=== PATIENT | female | born 1970 | race American Indian/Alaskan Native ===

== ENCOUNTER 2016-08-12 05:48 | Emergency (ER) | payer MEDICARE ==
[2016-08-12 06:30] LABS: Basophils % (Auto) 0.5 % (0.0-1.8); Eosinophils % (Auto) 1.3 % (0.0-4.3); Hematocrit 37.4 % (30.3-42.9); Hemoglobin 12.1 gm/dl (10.1-14.3); Mean Corpuscular HGB Conc 32 % (30-34); Mean Corpuscular Hemoglobin 30 pg (28-32); Mean Corpuscular Volume 92 fl (79-97); Platelet Count 130 K/mm3 (140-440); Red Blood Count 4.09 M/mm3 (3.65-5.03); Red Cell Distribution Width 13.4 % (13.2-15.2); White Blood Count 4.4 K/mm3 (4.5-11.0)
[2016-08-12 06:53] LABS: Anion Gap 20 mmol/L; BUN/Creatinine Ratio 17.14; Blood Urea Nitrogen 12 mg/dL (7-17); Calcium 8.6 mg/dL (8.4-10.2); Carbon Dioxide 21 mmol/L (22-30); Chloride 105.2 mmol/L (98-107); Glucose 89 mg/dL (65-100); Potassium 3.8 mmol/L (3.6-5.0); Sodium 142 mmol/L (137-145)
[2016-08-12 07:51] LABS: Bilirubin,Urine NEG (Negative); Blood,Urine NEG (Negative); Ketones,Urine NEG (Negative); Leukocyte Esterase,Urine NEG (Negative); Mucus,Urine FEW /HPF; Nitrite,Urine NEG (Negative); Protein,Urine <15 mg/dL mg/dL (Negative); Urobilinogen,Urine < 2.0 mg/dL (<2.0)
--- NOTE | 2016-08-12 11:04 | Emergency Department Report ---
ED Chest Pain HPI - General Chief Complaint: Chest Pain Stated Complaint: CP/L ARM PAIN Time Seen by Provider: 08/12/16 10:49 Source: patient, RN notes reviewed, old records reviewed Mode of arrival: Ambulatory Limitations: No Limitations - History of Present Illness Initial Comments: This is a 46-year-old female. She is previously unknown to me. Her primary care doctor is Dr. Kayla Eugene. Past medical history includes hypertension, hypothyroidism, anemia and bipolar disorder. Patient had a negative nuclear stress test at this hospital October 2014. Patient presents to the ED O essential chest pain for 3 weeks. The chest pain does not radiates to the back, arms or neck. She does note that she develops intermittent left arm tingling, but this is not a radiation sensation. There is no nausea or vomiting, there is no diaphoresis, there is no shortness of breath, there is no leg pain, there is no leg swelling, no recent trips greater than 4 hours. Patient also reports a negative nuclear stress test early ROM is here because of palpitations which have subsequently been attributed to her hypothyroidism. She has not taken aspirin in the past 7 days , there is no cocaine use. MD Complaint: chest pain -: Gradual, week(s) Pain Location: substernal, left chest Severity scale (0 -10): 0 Quality: aching Consistency: intermittent Improves With: nothing Worsens With: nothing Treatments Prior to Arrival: none Aspirin use within the Past 7 Days: (0) No - Related Data On Oral Contraceptives: No Home Medications Medication Instructions Recorded Confirmed Last Taken Atenolol [Tenormin] 50 mg PO DAILY 07/05/15 12/09/15 12/09/15 Ferrous Sulfate [Feosol] 325 mg PO QDAY 07/05/15 12/09/15 12/09/15 Potassium Gluconate 595 mg PO QDAY 07/05/15 12/09/15 12/09/15 Topiramate [Topamax] 100 mg PO QDAY 07/05/15 12/09/15 12/09/15 busPIRone [Buspar] 10 mg PO BID 07/05/15 12/09/15 12/09/15 cycloSPORINE [Restasis 0.05%] 1 drops OU BID 12/09/15 12/09/15 12/09/15 valACYclovir [Valtrex] 500 mg PO DAILY 0912/09/15 12/09/15 Previous Rx's Medication Instructions Recorded Last Taken Type Ibuprofen [Motrin] 800 mg PO Q8HR PRN #14 tablet 12/09/15 Unknown Rx ALBUTEROL Inhaler [ProAir HFA 2 puff IH QID PRN #1 inhalation 02/19/16 Unknown Rx Inhaler] Azithromycin [Zithromax Z-CHA] 250 mg PO DAILY #6 tab 02/19/16 Unknown Rx Fluticasone [Flonase] 1 spray NS QDAY #1 bottle 02/19/16 Unknown Rx Allergies Allergy/AdvReac Type Severity Reaction Status Date / Time oxycodone AdvReac Rash Verified 12/09/15 15:38 sulfamethoxazole AdvReac Rash Verified 12/09/15 15:38 [From Bactrim] trimethoprim [From Bactrim] AdvReac Rash Verified 12/09/15 15:38 ASHUTOSH score - Ashutosh Score Age > 65: (0) No Aspirin use within the Past 7 Days: (0) No 3 or more CAD Risk Factors: (0) No 2 or more Angina events in past 24 hrs: (0) No Known CAD with more than 50% Stenosis: (0) No Elevated Cardiac Markers: (0) No ST Deviation Greater than 0.5mm: (0) No ASHUTOSH Score: 0 ED Review of Systems ROS: Stated complaint: CP/L ARM PAIN Other details as noted in HPI ED Past Medical Hx - Past Medical History Previous Medical History?: Yes Hx Hypertension: Yes (Atenolol taken ) Hx GERD: Yes Hx Psychiatric Treatment: Yes (bipolar) Additional medical history: Mitral Valve Prolapse - Surgical History Past Surgical History?: Yes Hx Breast Surgery: Yes (REDUCTION) - Social History Smoking Status: Never Smoker Substance Use Type: Alcohol - Medications Home Medications: Home Medications Medication Instructions Recorded Confirmed Last Taken Type Atenolol [Tenormin] 50 mg PO DAILY 07/05/15 12/09/15 12/09/15 History Ferrous Sulfate [Feosol] 325 mg PO QDAY 07/05/15 12/09/15 12/09/15 History Potassium Gluconate 595 mg PO QDAY 07/05/15 12/09/15 12/09/15 History Topiramate [Topamax] 100 mg PO QDAY 07/05/15 12/09/15 12/09/15 History busPIRone [Buspar] 10 mg PO BID 07/05/15 12/09/15 12/09/15 History Ibuprofen [Motrin] 800 mg PO Q8HR PRN #14 tablet 12/09/15 Unknown Rx cycloSPORINE [Restasis 0.05%] 1 drops OU BID 12/09/15 12/09/15 12/09/15 History valACYclovir [Valtrex] 500 mg PO DAILY 12/09/15 12/09/15 12/09/15 History ALBUTEROL Inhaler [ProAir HFA 2 puff IH QID PRN #1 inhalation 02/19/16 Unknown Rx Inhaler] Azithromycin [Zithromax Z-CHA] 250 mg PO DAILY #6 tab 02/19/16 Unknown Rx Fluticasone [Flonase] 1 spray NS QDAY #1 bottle 02/19/16 Unknown Rx ED Physical Exam - General Limitations: No Limitations General appearance: alert, in no apparent distress - Head Head exam: Present: atraumatic, normocephalic - Eye Eye exam: Present: normal appearance - ENT ENT exam: Present: normal exam, normal orophraynx, mucous membranes moist, normal external ear exam - Neck Neck exam: Present: normal inspection, full ROM. Absent: tenderness, meningismus - Respiratory Respiratory exam: Present: normal lung sounds bilaterally. Absent: respiratory distress, wheezes, rales, rhonchi, stridor, chest wall tenderness, accessory muscle use, decreased breath sounds - Cardiovascular Cardiovascular Exam: Present: regular rate, normal rhythm, normal heart sounds. Absent: bradycardia, tachycardia, irregular rhythm, systolic murmur, diastolic murmur, rubs, gallop - GI/Abdominal GI/Abdominal exam: Present: soft, normal bowel sounds. Absent: distended, tenderness, guarding, rebound, rigid, pulsatile mass, hernia - Extremities Exam Extremities exam: Present: normal inspection, full ROM, normal capillary refill. Absent: tenderness, pedal edema, joint swelling, calf tenderness - Back Exam Back exam: Present: normal inspection, full ROM. Absent: tenderness, CVA tenderness (R), CVA tenderness (L), muscle spasm, paraspinal tenderness, vertebral tenderness - Neurological Exam Neurological exam: Present: alert, oriented X3, normal gait, other (Extraocular movements intact. Tongue midline. No facial droop. Facial sensation intact to light touch in the V1, V2, V3 distribution bilaterally. 5 and 5 strength in 4 extremities.. Sensation is intact to light touch in 4 extremities.). Absent : motor sensory deficit - Psychiatric Psychiatric exam: Present: normal affect, normal mood - Skin Skin exam: Present: warm, dry, intact, normal color. Absent: rash ED Course Vital Signs 08/12/16 08/12/16 08/12/16 05:58 09:34 09:35 Temperature 98.3 F Pulse Rate 75 Respiratory 18 Rate Blood Pressure 162/9 150/93 150/93 O2 Sat by Pulse 100 100 Oximetry 08/12/16 08/12/16 08/12/16 09:36 10:00 10:30 Temperature Pulse Rate Respiratory 18 Rate Blood Pressure 144/87 138/81 O2 Sat by Pulse 100 100 100 Oximetry 08/12/16 08/12/16 08/12/16 11:23 11:30 11:51 Temperature Pulse Rate 68 Respiratory Rate Blood Pressure 135/83 125/75 O2 Sat by Pulse 100 100 Oximetry - Reevaluation(s) Reevaluation #1: 08/12/16 11:54 Differential diagnosis: GERD, gastritis, reflux, pneumonia, acute coronary syndrome, pericarditis, myocarditis Assessment and plan: 46-year-old female who is low risk by ASHUTOSH score, low risk by heart score, atypical chest pain, has a negative nuclear stress test April of this year (this is confirmed by cardiology on-call, Dru Lucas.) The patient has a pulmonary embolus or DVT risk factors, she is low risk by well 's criteria, and she is perc negative. EKG is essentially morphologically unchanged 2, troponins negative 2, x-ray of the chest negative for acute disease. Chloride is 105.2. I have discussed her case with cardiology on-call, Dru Crain. Patient is given follow-up appointment with cardiology August 16 at 2:40 PM. The patient is at low risk for major adverse cardiac event at this time. Reevaluation #2: 08/12/16 12:02 Patient indicates that she is not . X-ray of the chest is negative ED Medical Decision Making - Lab Data Result diagrams: 08/12/16 06:07 08/12/16 06:07 Vital Signs 08/12/16 08/12/16 08/12/16 05:58 09:34 09:35 Temperature 98.3 F Pulse Rate 75 Respiratory 18 Rate Blood Pressure 162/9 150/93 150/93 O2 Sat by Pulse 100 100 Oximetry 08/12/16 08/12/16 08/12/16 09:36 10:00 10:30 Temperature Pulse Rate Respiratory 18 Rate Blood Pressure 144/87 138/81 O2 Sat by Pulse 100 100 100 Oximetry 08/12/16 08/12/16 08/12/16 11:23 11:30 11:51 Temperature Pulse Rate 68 Respiratory Rate Blood Pressure 135/83 125/75 O2 Sat by Pulse 100 100 Oximetry Lab Results 08/12/16 08/12/16 08/12/16 Range/Units 06:07 06:07 08:57 WBC 4.4 L (4.5-11.0) K/mm3 RBC 4.09 (3.65-5.03) M/mm3 Hgb 12.1 (10.1-14.3) gm/dl Hct 37.4 (30.3-42.9) % MCV 92 (79-97) fl MCH 30 (28-32) pg MCHC 32 (30-34) % RDW 13.4 (13.2-15.2) % Plt Count 130 L (140-440) K/mm3 Lymph % (Auto) 48.9 H (13.4-35.0) % Caroline % (Auto) 10.0 H (0.0-7.3) % Eos % (Auto) 1.3 (0.0-4.3) % Baso % (Auto) 0.5 (0.0-1.8) % Lymph # 2.1 (1.2-5.4) K/mm3 Caroline # 0.4 (0.0-0.8) K/mm3 Eos # 0.1 (0.0-0.4) K/mm3 Baso # 0.0 (0.0-0.1) K/mm3 Seg Neutrophils % 39.3 L (40.0-70.0) % Seg Neutrophils # 1.7 L (1.8-7.7) K/mm3 Sodium 142 (137-145) mmol/L Potassium 3.8 (3.6-5.0) mmol/L Carbon Dioxide 21 L (22-30) mmol/L BUN 12 (7-17) mg/dL Creatinine 0.7 (0.7-1.2) mg/dL Estimated GFR > 60 ml/min BUN/Creatinine Ratio 17.14 % Glucose 89 (65-100) mg/dL Calcium 8.6 (8.4-10.2) mg/dL Troponin T < 0.010 < 0.010 (0.00-0.029) ng/mL Urine Color (Yellow) Urine Turbidity (Clear) Urine pH (5.0-7.0) Ur Specific [place] (1.003-1.030) Urine Protein (Negative) mg/dL Urine Glucose (UA) (Negative) mg/dL Urine Ketones (Negative) mg/dL Urine Blood (Negative) Urine Nitrite (Negative) Urine Bilirubin (Negative) Urine Urobilinogen (<2.0) mg/dL Ur Leukocyte Esterase (Negative) Urine WBC (Auto) (0.0-6.0) /HPF Urine RBC (Auto) (0.0-6.0) /HPF U Epithel Cells (Auto) (0-13.0) /HPF Urine Mucus /HPF Urine HCG, Qual (Negative) 08/12/16 Range/Units Unknown WBC (4.5-11.0) K/mm3 RBC (3.65-5.03) M/mm3 Hgb (10.1-14.3) gm/dl Hct (30.3-42.9) % MCV (79-97) fl MCH (28-32) pg MCHC (30-34) % RDW (13.2-15.2) % Plt Count (140-440) K/mm3 Lymph % (Auto) (13.4-35.0) % Caroline % (Auto) (0.0-7.3) % Eos % (Auto) (0.0-4.3) % Baso % (Auto) (0.0-1.8) % Lymph # (1.2-5.4) K/mm3 Caroline # (0.0-0.8) K/mm3 Eos # (0.0-0.4) K/mm3 Baso # (0.0-0.1) K/mm3 Seg Neutrophils % (40.0-70.0) % Seg Neutrophils # (1.8-7.7) K/mm3 Sodium (137-145) mmol/L Potassium (3.6-5.0) mmol/L Carbon Dioxide (22-30) mmol/L BUN (7-17) mg/dL Creatinine (0.7-1.2) mg/dL Estimated GFR ml/min BUN/Creatinine Ratio % Glucose (65-100) mg/dL Calcium (8.4-10.2) mg/dL Troponin T (0.00-0.029) ng/mL Urine Color Yellow (Yellow) Urine Turbidity Clear (Clear) Urine pH 5.0 (5.0-7.0) Ur Specific [place] 1.025 (1.003-1.030) Urine Protein <15 mg/dl (Negative) mg/dL Urine Glucose (UA) Neg (Negative) mg/dL Urine Ketones Neg (Negative) mg/dL Urine Blood Neg (Negative) Urine Nitrite Neg (Negative) Urine Bilirubin Neg (Negative) Urine Urobilinogen < 2.0 (<2.0) mg/dL Ur Leukocyte Esterase Neg (Negative) Urine WBC (Auto) 2.0 (0.0-6.0) /HPF Urine RBC (Auto) 1.0 (0.0-6.0) /HPF U Epithel Cells (Auto) 4.0 (0-13.0) /HPF Urine Mucus Few /HPF Urine HCG, Qual Negative (Negative) - EKG Data -: EKG Interpreted by Co EKG shows normal: sinus rhythm Rate: normal - EKG Data 08/12/16 11:56 EKG #1 demonstrates normal sinus, 70 bpm, normal axis, normal intervals, not morphologically consistent with STEMI, appears unchanged when compared to prior EKG from 02/18/2016. EKG #2 demonstrates normal sinus, 63 bpm, normal intervals, normal axis, not morphologically consistent with STEMI. Appears unchanged when compared to prior. - Radiology Data Radiology results: report reviewed, image reviewed X-ray of the chest is negative for acute disease Critical care attestation.: If time is entered above; I have spent that time in minutes in the direct care of this critically ill patient, excluding procedure time. ED Disposition Clinical Impression: Chest pain Disposition: DISCHARGED TO HOME OR SELFCARE Is pt being admited?: No Does the pt Need Aspirin: No Condition: Stable Instructions: Chest Pain (ED) Additional Instructions: Continue current outpatient medications. Follow up with your analytics developer, August 16, at 240 in the afternoon. Return to the ER right away with new pain, worsened pain, migration of pain, fevers or chills, intractable nausea or vomiting, inability to tolerate liquid feeds. Referrals: KAYLA CAGLE MD [Primary Care Provider] - 3-5 Days HARRIS SANTILLAN MD [Staff Physician] - 3-5 Days
--- NOTE | 2016-08-12 11:31 | XRay Report ---
CHEST 2 VIEWS INDICATION: Chest pain. COMPARISON: 07/05/2015. FINDINGS: PA and lateral chest radiographs demonstrate normal cardiomediastinal silhouette. Lungs now clear. Slight thoracic dextrocurvature. CONCLUSION: No acute disease in the chest. Thank you for the opportunity to participate in this patient's care.
[2016-08-12 12:14] VITALS: BP 129/79
== END 2016-08-12 12:14 | disposition home or self-care (01) ==
LOC: ED 05:48
DX: R07.9 Chest pain, unspecified (principal); I10 Essential (primary) hypertension; K21.9 Gastro-esophageal reflux disease without esophagitis; F31.9 Bipolar disorder, unspecified; Z88.2 Allergy status to sulfonamides; Z88.8 Allergy status to other drugs, medicaments and biological substances
CPT/HCPCS: 36415; 71020; 80048; 81001; 81025; 84484; 85025; 93005; 93010

== ENCOUNTER 2017-07-04 18:12 | Emergency (ER) | payer MEDICARE ==
--- NOTE | 2017-07-04 19:40 | XRay Report ---
FINAL REPORT PROCEDURE: XR CHEST ROUTINE 2V TECHNIQUE: PA and lateral chest radiographs were obtained. CPT 75735 HISTORY: Cough, congestion. COMPARISON: No prior studies are available for comparison. FINDINGS: Heart: Normal. Mediastinum/Vessels: Normal. Lungs/Pleural space: Normal. Bony thorax: No acute osseous abnormality. Other: Cholecystectomy clips. IMPRESSION: No radiographic evidence of acute abnormality.
[2017-07-05 00:39] VITALS: BP 146/86
[2017-07-05] MEDS ORDERED: AUGMENTIN 875 MG PO ONE (01:21)
[2017-07-05] MEDS ORDERED: DECADRON IM ONE (01:21)
[2017-07-05] MEDS ORDERED: TORADOL IM ONE (01:21)
--- NOTE | 2017-07-05 01:21 | Emergency Department Report ---
Minor Respiratory - HPI Chief Complaint: Upper Respiratory Infection Stated Complaint: upper respiratory congestion and cough Time Seen by Provider: 07/05/17 01:20 Duration: 3 weeks Pain Location: Other (headache 2/10 located to the front on both sides) Severity: mild (2/10) Minor Respiratory: Yes Rhinorrhea (congestion, drainage to the back of her throat worst at night), Yes Able to Tolerate Fluids, Yes Cough (worse that night ), No Sore Throat, No Ear Pain (ears feel clogged), No Sick Contacts, No Hemoptysis, No Chest Pain, No Shortness of Breath, No Fever Other History: Patient here reports th she has cough, nasal congestion and drainage with drainage of the back of her throat, slight headache to the front of her head. Denies any chest pain or shortness of breath. She says she was seen by her primary care physician on 07/01/2017 and was given multiple prescription to include Tessalon Perle, Medrol Dosepak, Mucinex which she said she is taking Zyrtec. She said this started 3 weeks ago and symptoms has not gotten better with medication that was given by primary care physician. Patient denies any wheezing or difficulty swallowing. She said she follows ear nose and throat doctor and he had given her Flonase previously which worked for her but she did not get any from her primary care physician. She says she takes Tylenol [id number] for her headache and it helped but she still feeling clogged and pressure at the front of her head with pain being 2 out of 10. Pain comes and goes. Better with Tylenol. Pain is worse with coughing. Patient denies any fever or chills. Denies any nausea or vomiting. ED Review of Systems ROS: Stated complaint: LYNN Other details as noted in HPI Comment: All other systems reviewed and negative Constitutional: no symptoms reported Eyes: denies: eye pain, eye discharge ENT: congestion, other (ear sensation). denies: ear pain, throat pain, dental pain, epistaxis Respiratory: cough. denies: orthopnea, shortness of breath, SOB with exertion, SOB at rest, stridor, wheezing Cardiovascular: denies: chest pain, palpitations, dyspnea on exertion, orthopnea , edema, paroxysmal nocturnal dyspnea Gastrointestinal: denies: abdominal pain, nausea, vomiting, diarrhea Genitourinary: denies: dysuria, hematuria Musculoskeletal: denies: back pain, joint swelling, arthralgia, myalgia Skin: denies: rash Neurological: headache. denies: weakness, numbness, paresthesias, confusion, abnormal gait, vertigo ED Past Medical Hx - Past Medical History Previous Medical History?: Yes Hx Hypertension: Yes (Atenolol taken ) Hx GERD: Yes Hx Psychiatric Treatment: Yes (bipolar) Additional medical history: Mitral Valve Prolapse - Surgical History Past Surgical History?: Yes Hx Breast Surgery: Yes (REDUCTION) - Family History Family history: hypertension - Social History Smoking Status: Never Smoker Substance Use Type: None - Medications Home Medications: Home Medications Medication Instructions Recorded Confirmed Last Taken Type Atenolol [Tenormin] 50 mg PO DAILY 07/05/15 12/09/15 12/09/15 History Ferrous Sulfate [Feosol] 325 mg PO QDAY 07/05/15 12/09/15 12/09/15 History Potassium Gluconate 595 mg PO QDAY 07/05/15 12/09/15 12/09/15 History Topiramate [Topamax] 100 mg PO QDAY 07/05/15 12/09/15 12/09/15 History busPIRone [Buspar] 10 mg PO BID 07/05/15 12/09/15 12/09/15 History Ibuprofen [Motrin] 800 mg PO Q8HR PRN #14 tablet 12/09/15 Unknown Rx cycloSPORINE [Restasis 0.05%] 1 drops OU BID 12/09/15 12/09/15 12/09/15 History valACYclovir [Valtrex] 500 mg PO DAILY 12/09/15 12/09/15 12/09/15 History ALBUTEROL Inhaler [ProAir HFA 2 puff IH QID PRN #1 inhalation 02/19/16 Unknown Rx Inhaler] Azithromycin [Zithromax Z-CHA] 250 mg PO DAILY #6 tab 02/19/16 Unknown Rx Amoxicillin/K Clav Tab [Augmentin 1 tab PO Q12HR 10 Days #20 tab 07/05/17 Unknown Rx 875 mg] Fluticasone [Flonase] 1 spray NS QDAY 14 Days #1 bottle 07/05/17 Unknown Rx guaiFENesin/CODEINE [Robitussin AC] 5 ml PO Q8H PRN #100 ml 07/05/17 Unknown Rx Minor Respiratory Exam - Exam General: Vital signs noted. No distress. Alert and acting appropriately. This is a 46-year-old female well-nourished well-developed in no acute distress. HEENT: Yes Moist Mucous Membranes, Yes Rhinorrhea (nasal congestion with erythema), No Pharyngeal Erythema (no drooling. Uvula is midline and oral airways patent), No Pharyngeal Exudates, No Conjuctival Injection, No Frontal Tenderness ( Bilateral frontal sinus tenderness), No Maxillary Tenderness Ear: Neither TM Bulge (Bilateral TM congested), Neither TM Erythema, Neither EAC Pain, Neither EAC Discharge Neck: Yes Supple (full range of motion and no C-spine tenderness), No Adenopathy Lungs: Yes Good Air Exchange (CTAB. Normal work of breathing and), Yes Cough ( dry cough), No Wheezes, No Ronchi, No Stridor, No Labored Respirations, No Retractions, No Use of Accessory Muscles, No Other Abnormal Lung Sounds Heart: Yes Regular (S1 and S2. Regular rate and rhythm), No Murmur Abdomen: Yes Normal Bowel Sounds (in all quadrants), No Tenderness (nontender the palpation in all quadrants.), No Peritoneal Signs Skin: No Rash, No Edema Neurologic: Alert and oriented, no deficits. Neurological: GCS at 15, Pt is alert and oriented 3 speech is clear . Bilateral hand sales and service representative strong and equal. Normal gait. Negative Romberg and no pronator drift. Normal Reflexes. No motor or sensory deficit Musculoskeletal: Unremarkable. MSK/extremity: No clubbing, cyanosis or edema. Positive pulses all extremities and no neurovascular compromise. ED Course Vital Signs 07/04/17 07/05/17 18:18 00:38 Temperature 98.7 F Pulse Rate 79 58 L Respiratory 16 18 Rate Blood Pressure 167/96 Blood Pressure 146/86 [Left] O2 Sat by Pulse 100 100 Oximetry - Reevaluation(s) Reevaluation #1: 07/05/17 02:24 Patient given Decadron 10 mg IM and Toradol 60 mg IM for headache and sinus infection. She was also given Augmentin 875 mg by mouth ED Medical Decision Making - Radiology Data Chest x-ray reveals no acute cardiopulmonary findings. - Medical Decision Making ED course: Patient here complaining of upper respiratory symptoms of cough and congestion and headache. She was recently seen by her moderate needs teacher 3 days ago who prescribed her Tessalon Perle for cough, Medrol Dosepak and she is taking Zyrtec. Patient was given Toradol 60 mg IM and Decadron 10 mg IM in the emergency room which helped her symptoms. Patient says she does not feel any better. She says she took Tylenol [id number] for headache which helped. Patient says she has sinus infection which is chronic and she sees the ENT and when she sees ENT he gives her Flonase with her doctor did not give her Flonase or antibiotic. Patient with acute bacterial rhinosinusitis, headache more than likely from sinus infection. Patient does have bilateral frontal sinus tenderness and her neurological exam is intact. I discussed diagnosis and treatment plan the patient and I discussed with her that she should stop Tessalon Perle and I will put her on guaifenesin with codeine for cough because she said her cough is constant and it's worse at night. I told her to continue taking Zyrtec and Medrol Dosepak and I'll add antibiotic and Flonase. I discussed the patient that she needs to follow-up with her in nose and throat and her primary care physician in 3-5 days. She voices understanding discharge diagnosis and treatment plan and discharged home in stable condition. Critical care attestation.: If time is entered above; I have spent that time in minutes in the direct care of this critically ill patient, excluding procedure time. ED Disposition Clinical Impression: Acute bacterial rhinosinusitis, Cough in adult Headache, acute Qualifiers: Headache type: unspecified Intractability: not intractable Qualified Code(s): R51 - Headache Disposition: DC-01 TO HOME OR SELFCARE Is pt being admited?: No Does the pt Need Aspirin: No Condition: Stable Instructions: Acute Cough (ED), Acute Headache (ED), Acute Bacterial Rhinosinusitis (ED) Additional Instructions: Please increase her fluid intake Flush nostrils with saline nasal spray take antibiotic as prescribed F/U with primary care physician and ear nose and throat doctor as instructed Stop taking Tessalon Perle and start taking guaifenesin with codeine cough syrup. Please do not drive or operate heavy machinery while taking this medication. Continue Zyrtec and Medrol Dosepak Prescriptions: Amoxicillin/K Clav Tab [Augmentin 875 mg] 1 tab PO Q12HR 10 Days #20 tab Fluticasone [Flonase] 1 spray NS QDAY 14 Days #1 bottle guaiFENesin/CODEINE [Robitussin AC] 5 ml PO Q8H PRN #100 ml PRN Reason: Cough Referrals: your ,primary care physician [Other] - 3-5 Days your, ear nose and throat doctor [Other] - 3-5 Days Forms: Work/School Release Form(ED)
== END 2017-07-05 02:52 | disposition home or self-care (01) ==
LOC: ED 18:12
DX: R51 Headache (principal); J01.90 Acute sinusitis, unspecified; B96.89 Other specified bacterial agents as the cause of diseases classified elsewhere; I10 Essential (primary) hypertension; K21.9 Gastro-esophageal reflux disease without esophagitis; F31.9 Bipolar disorder, unspecified; Z88.5 Allergy status to narcotic agent; Z88.2 Allergy status to sulfonamides
CPT/HCPCS: 71046; 96372; 99283; J1100; J1885

== ENCOUNTER 2017-07-11 20:05 | Emergency (ER) | payer MEDICARE ==
[2017-07-11 20:29] LABS: Basophils # (Auto) 0.1 K/mm3 (0.0-0.1); Basophils % (Auto) 0.8 % (0.0-1.8); Eosinophils # (Auto) 0.1 K/mm3 (0.0-0.4); Eosinophils % (Auto) 1.5 % (0.0-4.3); Hematocrit 41.3 % (30.3-42.9); Hemoglobin 13.3 gm/dl (10.1-14.3); Lymphocytes % (Auto) 24.7 % (13.4-35.0); Mean Corpuscular HGB Conc 32 % (30-34); Mean Corpuscular Hemoglobin 30 pg (28-32); Mean Corpuscular Volume 93 fl (79-97); Monocytes # (Auto) 0.7 K/mm3 (0.0-0.8); Platelet Count 290 K/mm3 (140-440); Red Blood Count 4.46 M/mm3 (3.65-5.03); Red Cell Distribution Width 13.7 % (13.2-15.2)
[2017-07-11 20:42] LABS: Alanine Aminotransferase 11 units/L (7-56); BUN/Creatinine Ratio 13; Blood Urea Nitrogen 10 mg/dL (7-17); Calcium 9.1 mg/dL (8.4-10.2); Hemolysis Index 2
[2017-07-11 22:22] LABS: Bilirubin,Urine NEG (Negative); Blood,Urine NEG (Negative); Color,Urine Yellow (Yellow); Mucus,Urine FEW /HPF; Protein,Urine <15 mg/dL mg/dL (Negative); Urobilinogen,Urine < 2.0 mg/dL (<2.0)
[2017-07-12] MEDS ORDERED: NACL 0.9% 1000 ML 1,000 ML IV ONE (02:39)
[2017-07-12] MEDS ORDERED: TORADOL IV ONE (02:39)
[2017-07-12 03:49] VITALS: BP 120/73
--- NOTE | 2017-07-12 04:53 | Cat Scan Report ---
FINAL REPORT PROCEDURE: CT ABDOMEN PELVIS W CON TECHNIQUE: Computerized axial tomography of the abdomen and pelvis was performed after the IV injection of iodinated nonionic contrast. HISTORY: ABD PAIN, RIGHT LOWER QUADRANT COMPARISON: No prior studies are available for comparison. FINDINGS: Visualized lower thorax: There are infiltrates at the right lung base.. Liver: Normal size and attenuation. Spleen: Normal size and attenuation. Gallbladder and biliary system: There has been a cholecystectomy. The bile ducts are normal in caliber.. Pancreas: Normal. Adrenals: Normal. Kidneys: Normal. GI tract: There is no bowel obstruction, colitis or enteritis. The appendix is normal.. Lymph nodes and mesentery: There are enlarged lymph nodes in the right lower quadrant mesentery and small bowel mesentery. Adenitis not excluded.. Vasculature: Normal. Bladder: Normal. Reproductive organs: Uterus and ovaries are unremarkable.. There is a 13 millimeter cyst in the left ovary. Peritoneum: There is no ascites or free air, abscess or mass.. Musculoskeletal structures: No significant abnormality. Other: There is a small umbilical hernia containing fat only.. IMPRESSION: There has been a cholecystectomy. The bile ducts are normal in caliber.. There is no bowel obstruction, colitis or enteritis. The appendix is normal.. There are enlarged lymph nodes in the right lower quadrant mesentery and small bowel mesentery. Adenitis not excluded.. Uterus and ovaries are unremarkable.. There is a 13 millimeter cyst in the left ovary. There is no ascites or free air, abscess or mass.. There is a small umbilical hernia containing fat only..
--- NOTE | 2017-07-12 05:05 | Emergency Department Report ---
HPI - General Chief Complaint: Abdominal Pain Time Seen by Provider: 07/12/17 02:26 - HPI HPI: Nausea vomiting diarrhea for 4 days. Patient states symptoms started after eating some taco [employer]. Patient denies any fever or chills night sweat. Patient denies any flank pain. She has not tried any medications for her symptoms. Patient denies any exacerbating factors, any alleviating factors. ED Past Medical Hx - Past Medical History Previous Medical History?: Yes Hx Hypertension: Yes (Atenolol taken ) Hx GERD: Yes Hx Psychiatric Treatment: Yes (bipolar) Additional medical history: Mitral Valve Prolapse - Surgical History Past Surgical History?: Yes Hx Breast Surgery: Yes (REDUCTION) - Social History Smoking Status: Never Smoker Substance Use Type: None - Medications Home Medications: Home Medications Medication Instructions Recorded Confirmed Last Taken Type Atenolol [Tenormin] 50 mg PO DAILY 07/05/15 12/09/15 12/09/15 History Ferrous Sulfate [Feosol] 325 mg PO QDAY 07/05/15 12/09/15 12/09/15 History Potassium Gluconate 595 mg PO QDAY 07/05/15 12/09/15 12/09/15 History Topiramate [Topamax] 100 mg PO QDAY 07/05/15 12/09/15 12/09/15 History busPIRone [Buspar] 10 mg PO BID 07/05/15 12/09/15 12/09/15 History Ibuprofen [Motrin] 800 mg PO Q8HR PRN #14 tablet 12/09/15 Unknown Rx cycloSPORINE [Restasis 0.05%] 1 drops OU BID 12/09/15 12/09/15 12/09/15 History valACYclovir [Valtrex] 500 mg PO DAILY 12/09/15 12/09/15 12/09/15 History ALBUTEROL Inhaler [ProAir HFA 2 puff IH QID PRN #1 inhalation 02/19/16 Unknown Rx Inhaler] Azithromycin [Zithromax Z-CHA] 250 mg PO DAILY #6 tab 02/19/16 Unknown Rx Amoxicillin/K Clav Tab [Augmentin 1 tab PO Q12HR 10 Days #20 tab 07/05/17 Unknown Rx 875 mg] Fluticasone [Flonase] 1 spray NS QDAY 14 Days #1 bottle 07/05/17 Unknown Rx guaiFENesin/CODEINE [Robitussin AC] 5 ml PO Q8H PRN #100 ml 07/05/17 Unknown Rx Diphenoxylate/Atropine [Lomotil] 1 tab PO Q4H PRN #14 tablet 07/12/17 Unknown Rx Promethazine [Phenergan TAB] 25 mg PO Q6HR PRN #14 tab 07/12/17 Unknown Rx ED Review of Systems ROS: Stated complaint: ABD PAIN; N/V/D Other details as noted in HPI Comment: All other systems reviewed and negative Cardiovascular: denies: chest pain, palpitations, dyspnea on exertion, orthopnea Endocrine: denies: flushing, intolerance to cold Gastrointestinal: abdominal pain, nausea, diarrhea. denies: hematemesis, melena Physical Exam - Physical Exam Vital Signs: Vital Signs 07/11/17 07/11/17 07/12/17 20:06 20:14 03:49 Temperature 98.1 F Pulse Rate 97 H 72 Respiratory 18 16 Rate Blood Pressure 153/95 Blood Pressure 120/73 [Left] O2 Sat by Pulse 100 100 Oximetry Physical Exam: - Physical Exam Physical Exam: - General Limitations: No Limitations General appearance: alert, in no apparent distress. - Head Head exam: Present: atraumatic, normocephalic - Eye Eye exam: Present: normal appearance - ENT ENT exam: Present: mucous membranes moist - Neck Neck exam: Present: normal inspection - Respiratory Respiratory exam: Present: normal lung sounds bilaterally. Absent: respiratory distress - Cardiovascular Cardiovascular Exam: Present: normal rhythm, normal rate. Absent: systolic murmur, diastolic murmur, rubs, gallop - GI/Abdominal GI/Abdominal exam: Present: soft, normal bowel sounds - Extremities Exam Extremities exam: Present: normal inspection - Back Exam Back exam: Present: normal inspection - Neurological Exam Neurological exam: Present: alert, oriented X3 - Psychiatric Psychiatric exam: normal affect and mood - Skin Skin exam: Present: warm, dry, intact, normal color. Absent: rash ED Course Vital Signs 07/11/17 07/11/17 07/12/17 20:06 20:14 03:49 Temperature 98.1 F Pulse Rate 97 H 72 Respiratory 18 16 Rate Blood Pressure 153/95 Blood Pressure 120/73 [Left] O2 Sat by Pulse 100 100 Oximetry ED Medical Decision Making - Lab Data Result diagrams: 07/11/17 20:18 04/06/18 20:18 Critical care attestation.: If time is entered above; I have spent that time in minutes in the direct care of this critically ill patient, excluding procedure time. ED Disposition Clinical Impression: Enteritis, Food poisoning Disposition: DC-01 TO HOME OR SELFCARE Is pt being admited?: No Does the pt Need Aspirin: No Condition: Stable Instructions: Abdominal Pain (ED) Prescriptions: Diphenoxylate/Atropine [Lomotil] 1 tab PO Q4H PRN #14 tablet PRN Reason: Diarrhea Promethazine [Phenergan TAB] 25 mg PO Q6HR PRN #14 tab PRN Reason: Nausea Referrals: KAYLA CAGLE MD [Primary Care Provider] - 3-5 Days
== END 2017-07-12 05:20 | disposition home or self-care (01) ==
LOC: ED 20:05
DX: K52.9 Noninfective gastroenteritis and colitis, unspecified (principal); T62.8X1A Toxic effect of other specified noxious substances eaten as food, accidental (unintentional), initial encounter; I10 Essential (primary) hypertension; K21.9 Gastro-esophageal reflux disease without esophagitis; Y92.89 Other specified places as the place of occurrence of the external cause
CPT/HCPCS: 36415; 74177; 80053; 81001; 84703; 85025; 96361; 96374; 99284; J1885; J7030; Q9967

== ENCOUNTER 2017-11-08 13:42 | Emergency (ER) | payer MEDICARE ==
--- NOTE | 2017-11-08 14:54 | Emergency Department Report ---
ED ENT HPI - General Chief complaint: Headache Stated complaint: HEADACHE Time Seen by Provider: 11/08/17 14:24 Source: patient Mode of arrival: Ambulatory Limitations: No Limitations - History of Present Illness Initial comments: Patient is a 43-year-old female who is complaining of right- sided headache for approximately a month. Patient states she believes this started with a toothache. Patient states the entire right side of her head hurts pain is 8 out of 10 in severity hurts worse when she is chewing. The patient denies any fevers chills nausea vomiting or difficulty swallowing. - Related Data Home Medications Medication Instructions Recorded Confirmed Last Taken Atenolol [Tenormin] 50 mg PO DAILY 07/05/15 12/09/15 12/09/15 Ferrous Sulfate [Feosol] 325 mg PO QDAY 07/05/15 12/09/15 12/09/15 Potassium Gluconate 595 mg PO QDAY 07/05/15 12/09/15 12/09/15 Topiramate [Topamax] 100 mg PO QDAY 07/05/15 12/09/15 12/09/15 busPIRone [Buspar] 10 mg PO BID 07/05/15 12/09/15 12/09/15 cycloSPORINE [Restasis 0.05%] 1 drops OU BID 12/09/15 12/09/15 12/09/15 valACYclovir [Valtrex] 500 mg PO DAILY 12/09/15 12/09/15 12/09/15 Previous Rx's Medication Instructions Recorded Last Taken Type Ibuprofen [Motrin] 800 mg PO Q8HR PRN #14 tablet 12/09/15 Unknown Rx ALBUTEROL Inhaler [ProAir HFA 2 puff IH QID PRN #1 inhalation 02/19/16 Unknown Rx Inhaler] Azithromycin [Zithromax Z-CHA] 250 mg PO DAILY #6 tab 02/19/16 Unknown Rx Amoxicillin/K Clav Tab [Augmentin 1 tab PO Q12HR 10 Days #20 tab 07/05/17 Unknown Rx 875 mg] Fluticasone [Flonase] 1 spray NS QDAY 14 Days #1 bottle 07/05/17 Unknown Rx guaiFENesin/CODEINE [Robitussin AC] 5 ml PO Q8H PRN #100 ml 07/05/17 Unknown Rx Diphenoxylate/Atropine [Lomotil] 1 tab PO Q4H PRN #14 tablet 07/12/17 Unknown Rx Promethazine [Phenergan TAB] 25 mg PO Q6HR PRN #14 tab 07/12/17 Unknown Rx Clindamycin [Clindamycin CAP] 300 mg PO Q8H 7 Days cap 11/08/17 Unknown Rx Ibuprofen [Motrin] 800 mg PO Q8HR PRN #20 tablet 11/08/17 Unknown Rx Allergies Allergy/AdvReac Type Severity Reaction Status Date / Time oxycodone AdvReac Rash Verified 11/08/17 13:44 sulfamethoxazole AdvReac Rash Verified 11/08/17 13:44 [From Bactrim] trimethoprim [From Bactrim] AdvReac Rash Verified 11/08/17 13:44 ED Dental HPI - General Chief complaint: Headache Stated complaint: HEADACHE Time Seen by Provider: 11/08/17 14:24 Source: patient Mode of arrival: Ambulatory Limitations: No Limitations - Related Data Home Medications Medication Instructions Recorded Confirmed Last Taken Atenolol [Tenormin] 50 mg PO DAILY 07/05/15 12/09/15 12/09/15 Ferrous Sulfate [Feosol] 325 mg PO QDAY 07/05/15 12/09/15 12/09/15 Potassium Gluconate 595 mg PO QDAY 07/05/15 12/09/15 12/09/15 Topiramate [Topamax] 100 mg PO QDAY 07/05/15 12/09/15 12/09/15 busPIRone [Buspar] 10 mg PO BID 07/05/15 12/09/15 12/09/15 cycloSPORINE [Restasis 0.05%] 1 drops OU BID 12/09/15 12/09/15 12/09/15 valACYclovir [Valtrex] 500 mg PO DAILY 12/09/15 12/09/15 12/09/15 Previous Rx's Medication Instructions Recorded Last Taken Type Ibuprofen [Motrin] 800 mg PO Q8HR PRN #14 tablet 12/09/15 Unknown Rx ALBUTEROL Inhaler [ProAir HFA 2 puff IH QID PRN #1 inhalation 02/19/16 Unknown Rx Inhaler] Azithromycin [Zithromax Z-CHA] 250 mg PO DAILY #6 tab 02/19/16 Unknown Rx Amoxicillin/K Clav Tab [Augmentin 1 tab PO Q12HR 10 Days #20 tab 07/05/17 Unknown Rx 875 mg] Fluticasone [Flonase] 1 spray NS QDAY 14 Days #1 bottle 07/05/17 Unknown Rx guaiFENesin/CODEINE [Robitussin AC] 5 ml PO Q8H PRN #100 ml 07/05/17 Unknown Rx Diphenoxylate/Atropine [Lomotil] 1 tab PO Q4H PRN #14 tablet 07/12/17 Unknown Rx Promethazine [Phenergan TAB] 25 mg PO Q6HR PRN #14 tab 07/12/17 Unknown Rx Clindamycin [Clindamycin CAP] 300 mg PO Q8H 7 Days cap 11/08/17 Unknown Rx Ibuprofen [Motrin] 800 mg PO Q8HR PRN #20 tablet 11/08/17 Unknown Rx Allergies Allergy/AdvReac Type Severity Reaction Status Date / Time oxycodone AdvReac Rash Verified 11/08/17 13:44 sulfamethoxazole AdvReac Rash Verified 11/08/17 13:44 [From Bactrim] trimethoprim [From Bactrim] AdvReac Rash Verified 11/08/17 13:44 ED Review of Systems ROS: Stated complaint: HEADACHE Other details as noted in HPI Comment: All other systems reviewed and negative ED Past Medical Hx - Past Medical History Hx Hypertension: Yes Hx GERD: Yes Hx Psychiatric Treatment: Yes (bipolar) Additional medical history: Mitral Valve Prolapse - Surgical History Hx Breast Surgery: Yes (REDUCTION) - Social History Smoking Status: Never Smoker Substance Use Type: Alcohol - Medications Home Medications: Home Medications Medication Instructions Recorded Confirmed Last Taken Type Atenolol [Tenormin] 50 mg PO DAILY 07/05/15 12/09/15 12/09/15 History Ferrous Sulfate [Feosol] 325 mg PO QDAY 07/05/15 12/09/15 12/09/15 History Potassium Gluconate 595 mg PO QDAY 07/05/15 12/09/15 12/09/15 History Topiramate [Topamax] 100 mg PO QDAY 07/05/15 12/09/15 12/09/15 History busPIRone [Buspar] 10 mg PO BID 07/05/15 12/09/15 12/09/15 History Ibuprofen [Motrin] 800 mg PO Q8HR PRN #14 tablet 12/09/15 Unknown Rx cycloSPORINE [Restasis 0.05%] 1 drops OU BID 12/09/15 12/09/15 12/09/15 History valACYclovir [Valtrex] 500 mg PO DAILY 12/09/15 12/09/15 12/09/15 History ALBUTEROL Inhaler [ProAir HFA 2 puff IH QID PRN #1 inhalation 02/19/16 Unknown Rx Inhaler] Azithromycin [Zithromax Z-CHA] 250 mg PO DAILY #6 tab 02/19/16 Unknown Rx Amoxicillin/K Clav Tab [Augmentin 1 tab PO Q12HR 10 Days #20 tab 07/05/17 Unknown Rx 875 mg] Fluticasone [Flonase] 1 spray NS QDAY 14 Days #1 bottle 07/05/17 Unknown Rx guaiFENesin/CODEINE [Robitussin AC] 5 ml PO Q8H PRN #100 ml 07/05/17 Unknown Rx Diphenoxylate/Atropine [Lomotil] 1 tab PO Q4H PRN #14 tablet 07/12/17 Unknown Rx Promethazine [Phenergan TAB] 25 mg PO Q6HR PRN #14 tab 07/12/17 Unknown Rx Clindamycin [Clindamycin CAP] 300 mg PO Q8H 7 Days cap 11/08/17 Unknown Rx Ibuprofen [Motrin] 800 mg PO Q8HR PRN #20 tablet 11/08/17 Unknown Rx ED Physical Exam - General Limitations: No Limitations General appearance: alert, in no apparent distress - Head Head exam: Present: atraumatic, normocephalic - Eye Eye exam: Present: normal appearance - ENT ENT exam: Present: mucous membranes moist, other (she has significant dental caries and tenderness with palpation at tooth #32) - Neck Neck exam: Present: normal inspection - Respiratory Respiratory exam: Present: normal lung sounds bilaterally. Absent: respiratory distress - Cardiovascular Cardiovascular Exam: Present: regular rate, normal rhythm. Absent: systolic murmur, diastolic murmur, rubs, gallop - GI/Abdominal GI/Abdominal exam: Present: soft, normal bowel sounds - Extremities Exam Extremities exam: Present: normal inspection - Back Exam Back exam: Present: normal inspection - Neurological Exam Neurological exam: Present: alert, oriented X3 - Psychiatric Psychiatric exam: Present: normal affect, normal mood - Skin Skin exam: Present: warm, dry, intact, normal color. Absent: rash ED Course Vital Signs 11/08/17 13:44 Temperature 98.3 F Pulse Rate 64 Respiratory 18 Rate Blood Pressure 164/92 O2 Sat by Pulse 99 Oximetry ED Medical Decision Making - Medical Decision Making Patient be treated for a dental abscess and be discharged home Critical care attestation.: If time is entered above; I have spent that time in minutes in the direct care of this critically ill patient, excluding procedure time. ED Disposition Clinical Impression: Dental abscess Disposition: DC-01 TO HOME OR SELFCARE Is pt being admited?: No Does the pt Need Aspirin: No Condition: Stable Instructions: Dental Abscess (ED)
[2017-11-08 15:08] VITALS: BP 126/72
== END 2017-11-08 15:06 | disposition home or self-care (01) ==
LOC: ED 13:42
DX: K04.7 Periapical abscess without sinus (principal); I10 Essential (primary) hypertension; K21.9 Gastro-esophageal reflux disease without esophagitis; Z88.6 Allergy status to analgesic agent; Z88.1 Allergy status to other antibiotic agents; Z88.2 Allergy status to sulfonamides
CPT/HCPCS: 99282

== ENCOUNTER 2018-06-03 12:01 | Emergency (ER) | payer MEDICARE ==
[2018-06-03] MEDS ORDERED: TYLENOL PO ONE (12:11)
--- NOTE | 2018-06-03 12:15 | Emergency Department Report ---
Blank Doc - Documentation Documentation: Bilateral leg pain started mostly on left, Pain shooting sharp pain, Sorethroat , Nauseated, Chest pain. Fever. Pain 4/10 that is intermittent better with sitting worst with laying flat. This initial assessment diagnostic orders/clinical plan/treatment (s) is/Are subjectto change based on patient's health status, clinical progession and re- assessment by fellow clinical providers in the ED. Further treatment and work-up at subsequent clinical providers decretion. Patient/guardians urged not to elope from s their condition may be serious if not clinically assessed and managed. Inital order include: UA, HCG urine, Rapid Strep.
[2018-06-03 12:58] LABS: Bilirubin,Urine NEG (Negative); Blood,Urine NEG (Negative); Color,Urine Yellow (Yellow); Mucus,Urine FEW /HPF; Protein,Urine <15 mg/dL mg/dL (Negative)
[2018-06-03 12:59] LABS: HCG Qualitative,Urine Negative (Negative)
--- NOTE | 2018-06-03 14:21 | XRay Report ---
ROUTINE CHEST, TWO VIEWS: HISTORY: Cough, fever, chills. The trachea, heart, mediastinal contour, lung avila and bony thorax are unremarkable. IMPRESSION: Unremarkable chest x-ray.
--- NOTE | 2018-06-03 15:00 | Emergency Department Report ---
HPI - General Chief Complaint: Pain General Time Seen by Provider: 06/03/18 12:07 - HPI HPI: This is a 47-year-old female who presents to ED complaining of generalized body aches, sore throat and fever for the past week. She also complains of low back pain that radiates to her thigh. Patient states that she is usually indoors mostly. Patient states that she is unaware of any sick contacts. She admits mild intermittent cough. ED Past Medical Hx - Past Medical History Hx Hypertension: Yes Hx GERD: Yes Hx Psychiatric Treatment: Yes (bipolar) Additional medical history: Mitral Valve Prolapse - Surgical History Hx Cholecystectomy: Yes Hx Breast Surgery: Yes (REDUCTION) - Social History Smoking Status: Never Smoker Substance Use Type: Alcohol - Medications Home Medications: Home Medications Medication Instructions Recorded Confirmed Last Taken Type Atenolol [Tenormin] 50 mg PO DAILY 07/05/15 12/09/15 12/09/15 History Ferrous Sulfate [Feosol] 325 mg PO QDAY 07/05/15 12/09/15 12/09/15 History Potassium Gluconate 595 mg PO QDAY 07/05/15 12/09/15 12/09/15 History Topiramate [Topamax] 100 mg PO QDAY 07/05/15 12/09/15 12/09/15 History busPIRone [Buspar] 10 mg PO BID 07/05/15 12/09/15 12/09/15 History Ibuprofen [Motrin] 800 mg PO Q8HR PRN #14 tablet 12/09/15 Unknown Rx cycloSPORINE [Restasis 0.05%] 1 drops OU BID 12/09/15 12/09/15 12/09/15 History valACYclovir [Valtrex] 500 mg PO DAILY 12/09/15 12/09/15 12/09/15 History ALBUTEROL Inhaler (OR & NICU) 2 puff IH QID PRN #1 inhalation 02/19/16 Unknown Rx [ProAir HFA Inhaler] Azithromycin [Zithromax Z-CHA] 250 mg PO DAILY #6 tab 02/19/16 Unknown Rx Amoxicillin/K Clav Tab [Augmentin 1 tab PO Q12HR 10 Days #20 tab 07/05/17 Unknown Rx 875 mg] Fluticasone [Flonase] 1 spray NS QDAY 14 Days #1 bottle 07/05/17 Unknown Rx Diphenoxylate/Atropine [Lomotil] 1 tab PO Q4H PRN #14 tablet 07/12/17 Unknown Rx Promethazine [Phenergan TAB] 25 mg PO Q6HR PRN #14 tab 07/12/17 Unknown Rx Clindamycin [Clindamycin CAP] 300 mg PO Q8H 7 Days cap 11/08/17 Unknown Rx Cyclobenzaprine [Flexeril] 10 mg PO QHS PRN #20 tablet 06/03/18 Unknown Rx Ibuprofen [Motrin 800 MG tab] 800 mg PO Q8HR PRN #20 tablet 06/03/18 Unknown Rx guaiFENesin [Mucinex] 600 mg PO BID #20 tab.er.12h 06/03/18 Unknown Rx ED Review of Systems ROS: Stated complaint: BODY PAIN/SORE THROAT/CHILLS Other details as noted in HPI Comment: All other systems reviewed and negative Physical Exam - Physical Exam Vital Signs: Vital Signs 06/03/18 06/03/18 12:08 12:27 Temperature 101.6 F H Pulse Rate 100 H Respiratory 18 18 Rate Blood Pressure 154/90 O2 Sat by Pulse 100 Oximetry Physical Exam: GENERAL: Alert and oriented x3, no apparent distress, Normal Gait, atraumatic. HEAD: Head is normocephalic and a-traumatic. EARS: symetrical, atraumatic, non tender, ear canal clear and moderate cerumen, tympanic membrance non inflamed. gross auditory nml bilaterally. MOUTH:Mouth is well hydrated and without lesions. Tonsils nonerythematous or swollen, Uvula midline, Tongue not elevated. Mucous membranes are moist. Posterior pharynx clear, no exudate or lesions. Patent airways. NECK: Supple. Non edematous, No carotid bruits. No lymphadenopathy or thyromegaly. No C-spine tenderness LUNGS: Symetrical with respiration, No wheezing, no rales or crackles, CTAB. HEART: S1, S2 present, regular rate and rhythm without murmur, no rubs, no gallops. Non tender to palpation EXTREMITIES/MUSCULOSKELETAL: No cyanosis, clubbing, rash, lesions or edema. Full ROM bilaterally. NEUROLOGIC: The patient is cooperative with no focal neurologic deficits. SKIN: Warm and dry, No lesions, No ulceration or induration present. ED Course Vital Signs 06/03/18 06/03/18 12:08 12:27 Temperature 101.6 F H Pulse Rate 100 H Respiratory 18 18 Rate Blood Pressure 154/90 O2 Sat by Pulse 100 Oximetry ED Medical Decision Making - Medical Decision Making This is a 47-year-old female presents to ED for viral syndrome Fever resolved no fever during the ED stay. Discussed with pt symptomatic relief with [id number] medications. Discussed continue Tylenol and Motrin as needed for fever and pain. Discussed increase fluids and diet intake. Discussed rest much needed. Discussed daily vitamin C for immune booster. Discussed follow-up with social group worker in 3-5 days. Patient verbally states she understands and will comply the following ins tructions and follow-up Vital signs stable. Patient is in no acute distress Critical care attestation.: If time is entered above; I have spent that time in minutes in the direct care of this critically ill patient, excluding procedure time. ED Disposition Clinical Impression: Viral syndrome Disposition: DC-01 TO HOME OR SELFCARE Is pt being admited?: No Does the pt Need Aspirin: No Condition: Stable Instructions: Upper Respiratory Infection in Children (ED), Upper Respiratory Infection (ED), Viral Syndrome (ED) Additional Instructions: Make sure to follow up with the primary care physician as discussed. Take all your medications as you've been prescribed. Do not take Flexeril along with your Robitussin with codeine. She did take Flexeril at night If you have any worsening symptoms or develop new symptoms please return to ED immediately. Prescriptions: Cyclobenzaprine [Flexeril] 10 mg PO QHS PRN #20 tablet PRN Reason: Muscle Spasm guaiFENesin [Mucinex] 600 mg PO BID #20 tab.er.12h Ibuprofen [Motrin 800 MG tab] 800 mg PO Q8HR PRN #20 tablet PRN Reason: Pain Referrals: NIKO HINDS MD [Primary Care Provider] - 3-5 Days [facility] [Outside] - 3-5 Days [facility] [Outside] - 3-5 Days Forms: Work/School Release Form(ED) Time of Disposition: 15:10
[2018-06-03 15:25] VITALS: BP 114/71
== END 2018-06-03 15:24 | disposition home or self-care (01) ==
LOC: ED 12:01
DX: B34.9 Viral infection, unspecified (principal); M79.10 Myalgia, unspecified site; I10 Essential (primary) hypertension; K21.9 Gastro-esophageal reflux disease without esophagitis; F31.9 Bipolar disorder, unspecified; Z90.49 Acquired absence of other specified parts of digestive tract; Z88.5 Allergy status to narcotic agent; Z88.2 Allergy status to sulfonamides
CPT/HCPCS: 71046; 81001; 81025; 87116; 87430; 99284